=== PATIENT | female | born 1995 | race African-American/Black ===

== ENCOUNTER 2022-06-30 08:46 | Outpatient (REF) | payer OTHER, SELFPAY ==
[2022-06-30 09:20] LABS: COVID-19 Test Negative (Negative)
== END 2022-06-30 08:47 | disposition home or self-care (01) ==
LOC: HO.LAB 08:46
PROVIDERS: Visit Provider Internal Medicine
DX: Z20.822 Contact with and (suspected) exposure to COVID-19 (principal)
CPT/HCPCS: 87635; C9803